=== PATIENT | female | born 1975 ===

== ENCOUNTER 2017-10-15 19:02 | Emergency (ER) | payer SELFPAY ==
[2017-10-15 19:18] VITALS: BP 145/89
--- NOTE | 2017-10-15 19:21 | UC ---
Laceration HPI - HPI Summary HPI Summary: 42 yo female presents with laceration to right upper lip. 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 A piece of wood fell down and struck her in the right lip. Sustained small laceration. Believes tetanus is up to date. This occurred about 20minutes [employer] - History Of Current Complaint Chief Complaint: UCLaceration Stated Complaint: CUT ON LIP Hx Obtained From: Patient Hx Last Menstrual Period: july 2017 Laceration Location: Face Mechanism Of Injury: Blunt Trauma Onset/Duration: Sudden Onset Severity: Mild Pain Intensity: 2 Pain Scale Used: 0-10 Numeric - Allergies/Home Medications Allergies/Adverse Reactions: Allergies Allergy/AdvReac Type Severity Reaction Status Date / Time Sulfa (Sulfonamide Allergy Rash Verified 10/15/17 19:12 Antibiotics) Home Medications: Home Medications Norgestimate-Ethinyl Estradiol [Ortho-Cyclen 28 Tablet] 1 tab PO DAILY 10/15/17 [History Confirmed 10/15/17] PMH/Surg Hx/FS Hx/Imm Hx - Additional Past Medical History Additional PMH: None Previously Healthy: Yes - Surgical History Surgical History: Yes Surgery Procedure, Year, and Place: tonsils as a child - Family History Known Family History: Positive: None - Social History Occupation: Employed Full-time Lives: With Family Alcohol Use: None Substance Use Type: None Smoking Status (MU): Never Smoked Tobacco Review of Systems Constitutional: Negative Skin: Other - Laceration right upper lip Eyes: Negative ENT: Negative Respiratory: Negative Cardiovascular: Negative Neurovascular: Negative Neurological: Negative Psychological: Negative All Other Systems Reviewed And Are Negative: Yes Physical Exam - Summary Physical Exam Summary: GENERAL: NAD. WDWN. No pain distress. SKIN: 4mm linear laceration to upper right lip. Does not cross vermilion boarder. Decently approximated. No bleeding, or drainage. No dental fracture. NECK: Supple. Nontender. No lymphadenopathy. CHEST: No accessory muscle use. Breathing comfortably and in no distress. CV: RRR. Without m/r/g. NEURO: Alert. CN II-XII grossly intact. PSYCH: Age appropriate behavior. Triage Information Reviewed: Yes Vital Signs: Initial Vital Signs Temp 98.5 F 10/15/17 19:13 Pulse 88 10/15/17 19:13 Resp 18 10/15/17 19:13 BP 145/89 10/15/17 19:13 Pulse Ox 100 10/15/17 19:13 Laceration Repair - Laceration Repair 1 Description: Linear Laceration Size After Repair: Length (cm) - 0.4 Modified For Repair: No Type Injection: Local Anesthesia Used: 2.0% Lido Cleansing Completed Via Routine Prep: Yes Closure Material: Sutures - TWO 6-0 Closure Method: Single Layer Suture Of: Skin Suture Type: Nylon Laceration Course/Dx - Course/Dx Course Of Treatment: A time out was performed, witnessed, and signed. The area was cleansed with 100mL sterile saline. 1mL of 2% lidocaine without epi was administered and good anesthetization was achieved. In the usual sterile fashion , TWO 6-0 nylon sutures were placed. Pt tolerated procedure well. - Differential Dx - Laceration/Wound Provider Diagnoses: Upper lip laceration Discharge - Sign-Out/Discharge Documenting (check all that apply): Discharge/Admit/Transfer - Discharge Plan Condition: Stable Disposition: HOME Patient Education Materials: Facial Laceration (ED) Referrals: Juhi Miles MD [Primary Care Provider] - Additional Instructions: If you develop a fever, shortness of breath, chest pain, new or worsening symptoms - please call your PCP or go to the ED. Your blood pressure was high at todays visit. Please see your primary provider within 4 weeks for recheck and re-evaluation. 1) If you develop a fever, colored or thick discharge, increased pain or swelling - please call your PCP or go to the ED. 2) Please return in 4-5 days to have your TWO sutures removed. - Billing Disposition and Condition Condition: STABLE Disposition: HOME
[2017-10-15] MEDS ORDERED: Lidocaine 2% PF * 5 ML VIAL INJ ONE (19:25)
== END 2017-10-15 19:45 | disposition home or self-care (01) ==
LOC: UCEAST 19:02
DX: Z88.2 Allergy status to sulfonamides (principal); S01.511A Laceration without foreign body of lip, initial encounter; W20.8XXA Other cause of strike by thrown, projected or falling object, initial encounter; Y93.89 Activity, other specified; Y92.89 Other specified places as the place of occurrence of the external cause; Y99.9 Unspecified external cause status
CPT/HCPCS: 12011; 99201; G0463

== ENCOUNTER 2017-10-20 15:50 | Emergency (ER) | payer SELFPAY ==
--- NOTE | 2017-10-20 16:00 | UC ---
HPI Wound/Suture Re-check - HPI Summary HPI Summary: sutures in right upper lip for 5 days her for removal---wound well approximated no s/s of infection - History Of Current Complaint Chief Complaint: UCWounds Stated Complaint: STITCHES REMOVED Time Seen by Provider: 10/20/17 16:00 Hx Obtained From: Patient Hx Last Menstrual Period: july 2017 Onset/Duration: Sudden Onset, Resolved Surgical Site: right upper lip Severity: Mild - Allergies/Home Medications Allergies/Adverse Reactions: Allergies Allergy/AdvReac Type Severity Reaction Status Date / Time Sulfa (Sulfonamide Allergy Rash Verified 10/20/17 16:03 Antibiotics) PMH/Surg Hx/FS Hx/Imm Hx Previously Healthy: Yes - Surgical History Surgical History: Yes Surgery Procedure, Year, and Place: tonsils as a child - Family History Known Family History: Positive: None - Social History Occupation: Employed Full-time Lives: With Family Alcohol Use: None Substance Use Type: None Smoking Status (MU): Never Smoked Tobacco Review of Systems Constitutional: Negative Skin: Other - well healed wound on right upper lip Eyes: Negative ENT: Negative Respiratory: Negative Cardiovascular: Negative Gastrointestinal: Negative Genitourinary: Negative Motor: Negative Neurovascular: Negative Musculoskeletal: Negative Neurological: Negative Psychological: Negative Is Patient Immunocompromised?: No All Other Systems Reviewed And Are Negative: Yes Physical Exam Triage Information Reviewed: Yes Appearance: Well-Appearing, No Pain Distress, Well-Nourished Vital Signs Reviewed: Yes Eye Exam: Normal Eyes: Positive: Conjunctiva Clear ENT Exam: Normal ENT: Positive: Normal ENT inspection, Hearing grossly normal. Negative: Trismus , Muffled voice, Hoarse voice Dental Exam: Normal Neck exam: Normal Neck: Positive: Supple, Nontender, No Lymphadenopathy Respiratory Exam: Normal Respiratory: Positive: Chest non-tender, No respiratory distress, No accessory muscle use Cardiovascular Exam: Normal Cardiovascular: Positive: RRR, Pulses Normal, Brisk Capillary Refill Musculoskeletal Exam: Normal Musculoskeletal: Positive: Strength Intact, ROM Intact Neurological Exam: Normal Neurological: Positive: Alert, Muscle Tone Normal Psychological Exam: Normal Skin Exam: Normal Skin: Positive: Other - well approximated and healed wound right upper lip Course/Dx - Course Course Of Treatment: 2 sutures removed patient tolerated well, no bleeding - Differential Dx - Laceration/Wound Provider Diagnoses: suture removal right upper lip, elevated blood pressure without dx of hypertension Discharge - Sign-Out/Discharge Documenting (check all that apply): Discharge/Admit/Transfer - Discharge Plan Condition: Stable Disposition: HOME Patient Education Materials: Hypertension (ED), Stitches Removal (ED) Referrals: Juhi Miles MD [Primary Care Provider] - 2 Weeks - Billing Disposition and Condition Condition: STABLE Disposition: HOME
[2017-10-20 16:02] VITALS: BP 144/81
== END 2017-10-20 16:12 | disposition home or self-care (01) ==
LOC: UCEAST 15:50
DX: S01.501D Unspecified open wound of lip, subsequent encounter (principal); W45.8XXD Other foreign body or object entering through skin, subsequent encounter; R03.0 Elevated blood-pressure reading, without diagnosis of hypertension; Z88.2 Allergy status to sulfonamides